=== PATIENT | female | born 1970 | race Caucasian/White ===

== ENCOUNTER 2017-04-27 12:54 | Emergency (ER) | payer SELFPAY ==
[~2017-04-27] VITALS: Ht 160 cm; Wt 79.2 kg
[2017-04-27 16:06] VITALS: BP 131/62
== END 2017-04-27 16:06 | disposition home or self-care (01) ==
LOC: ED 12:54
DX: R10.9 Unspecified abdominal pain (principal); M54.5 Low back pain
CPT/HCPCS: Q0092